=== PATIENT | male | born 1960 | race Caucasian/White ===

== ENCOUNTER → 2017-07-15 | Outpatient (CLI) | payer BC ==
[~2017-07-15] MED LIST: DOBUTamine DRIP for NUC MED 500 MG in DEXTROSE/WATER 1 250ML.BAG IV ONE
--- NOTE | 2017-07-15 11:30 | ECHOF ---
Referral Reason:I10 htn I63.9 Hx of cva MEASUREMENTS -------- HEIGHT: 180.3 cm WEIGHT: 22.7 kg BP: RVIDd: 2.8 cm (< 3.3) IVSd: 1.2 cm (0.6 - 1.1) LVIDd: 4.4 cm (3.9 - 5.3) LVPWd: 1.2 cm (0.6 - 1.1) IVSs: 1.6 cm LVIDs: 3.4 cm LVPWs: 1.6 cm LAESV Index (A-L): 44.08 ml/m Ao Diam: 3.6 cm (2.0 - 3.7) AV Cusp: 2.1 cm (1.5 - 2.6) LA Diam: 3.8 cm (2.7 - 3.8) MV EXCURSION: 9.371 mm (> 18.000) MV EF SLOPE: 62 mm/s (70 - 150) EPSS: 0.8 cm MV E John: 0.78 m/s MV DecT: 257 ms MV A John: 0.94 m/s MV E/A Ratio: 0.82 RAP: 5.00 mmHg RVSP: 13.96 mmHg FINDINGS -------- Sinus rhythm. This was a technically adequate study. The left ventricular size is normal. There is mild concentric left ventricular hypertrophy. Overall left ventricular systolic function is normal with, an EF between 55 - 60 %. The right ventricle is normal in size and function. LA is severely dilated >40 ml/m2 The right atrium is normal in size. Aortic valve is trileaflet and is mildly thickened. There is no evidence of aortic regurgitation. There is no evidence of aortic stenosis. The mitral valve leaflets are mildly thickened. Wzso-gc-ahtvxfjg mitral regurgitation is present. Trace tricuspid regurgitation present. Right ventricular systolic pressure is normal at < 35 mmHg. There is no evidence of pulmonary hypertension. Trace/mild (physiologic) pulmonic regurgitation. The aortic root size is normal. Normal inferior vena cava with normal inspiratory collapse consistent with estimated right atrial pressure of 5 mmHg. The pericardium is normal. There is no pericardial effusion. CONCLUSIONS -------- 1. Sinus rhythm. 2. Trace tricuspid regurgitation present. 3. Right ventricular systolic pressure is normal at < 35 mmHg. 4. There is no evidence of pulmonary hypertension. 5. Trace/mild (physiologic) pulmonic regurgitation. 6. The aortic root size is normal. 7. This was a technically adequate study. 8. The left ventricular size is normal. 9. There is mild concentric left ventricular hypertrophy. 10. Overall left ventricular systolic function is normal with, an EF between 55 - 60 %. 11. LA is severely dilated >40 ml/m2 12. Aortic valve is trileaflet and is mildly thickened. 13. The mitral valve leaflets are mildly thickened. 14. Pned-fj-uppacujk mitral regurgitation is present. [employer]: Sanjay Monroe RDCS
--- NOTE | 2017-07-15 13:05 | ECHOS ---
STRESS ECHOCARDIOGRAM DOBUTAMINE STRESS ECHOCARDIOGRAM: INDICATIONS: Hypertension/CVA MEDICATIONS:: Lipitor, propranolol, Furosemide, Clopidogrel. BASELINE HEART RATE: 65 BASELINE BLOOD PRESSURE: 96/55 MAXIMUM HEART RATE: 142 MAXIMUM BLOOD PRESSURE: 173/63 85% MPHR: 138 100% MPHR: 162 METS: - MAXIMUM STAGE REACHED: 3 TOTAL EXERCISE TIME: 8:30 CLINICAL INFORMATION: Baseline EKG revealed normal sinus rhythm without significant ST-T changes. Patient was admitted dobutamine as per protocol and with dobutamine administration his heart rate went up to 142 beats per minute. He had isolated PVCs. he did not have any angina. EKG did not reveal any ST-segment changes to indicate ischemia. By EKG criteria, this is unremarkable dobutamine stress test with isolated PVCs. Baseline echo images revealed normal wall motion and wall thickening of all segments. With the dobutamine administration, there was progressive increase in left ventricular contractility involving all segments suggesting that there is no evidence of stress- induced ischemia on this dobutamine stress echocardiogram. FINAL IMPRESSION: 1. By EKG criteria, this is an unremarkable dobutamine stress echo. 2. Normal dobutamine stress echocardiogram without evidence of ischemia. There were rare premature ventricular contractions noted and patient did not have any angina. MMODL / IJN: [id number] /
== END | disposition home or self-care (01) ==
LOC: RADNMMAIN 09:13
PROVIDERS: ATTEND Family Medicine
DX: I08.0 Rheumatic disorders of both mitral and aortic valves (principal); I10 Essential (primary) hypertension; Z86.73 Personal history of transient ischemic attack (TIA), and cerebral infarction without residual deficits
CPT/HCPCS: 93017; 93306; 93350

== ENCOUNTER 2021-08-02 11:07 | Emergency (ER) | payer BC ==
[2021-08-02 11:59] VITALS: BP 125/79; PULSE 57; RESP 16; TEMP 98.1
[2021-08-02] MEDS ORDERED: DIPH,PERTUS(ACELL)TETVAC-LF 0.5 ML VIAL IM ONE (12:21)
[2021-08-02] MEDS ORDERED: LIDOCAINE 1% INJ 10MG/ML (20 ML MDV) SQ ONE (12:23)
[2021-08-02] MEDS ORDERED: LIDOCAINE 1%-EPI 1:100,000 20 ML VIAL SQ STA (12:23)
[2021-08-02] MEDS ORDERED: BACITRACIN OINT 1 EACH PACKET TOPICAL ONE (12:23)
--- NOTE | 2021-08-02 12:27 | ED ---
General Adult HPI - General Source: patient Mode of arrival: ambulatory Limitations: no limitations <Jacki Ayoub - Last Filed: 08/02/21 13:58> <Brent Leblanc - Last Filed: 08/02/21 14:08> - General Chief complaint: Fall Stated complaint: fall, facial injury Time Seen by Provider: 08/02/21 12:04 - History of Present Illness Initial comments: 61-year-old male patient presents to the emergency department today for evaluation after falling off of his porch. Patient states he tripped over the dog leash and fell from the porch facedown. Patient does take Plavix. Porch is approximately 5 foot off the ground. Patient is reporting some mild pain to his right hand and some pain to his face. Denies headache, blurred vision, double vision. Denies any neck or back pain. Denies chest pain, shortness of breath, abdominal pain, nausea, vomiting. Denies drinking any alcohol or doing any drugs. States he was ambulatory after the fall. States last tetanus vaccine was approximately 6 years ago. He is declining pain medication at this time. Patient denies any dizziness, weakness, or difficulties with bowel movements or urination. (Jacki Ayoub) - Related Data Home Medications Medication Instructions Recorded Confirmed Atorvastatin [Lipitor] 40 mg PO DAILY 08/20/16 10/02/16 Clopidogrel [Plavix] 75 mg PO DAILY 08/20/16 10/01/16 Propranolol [Inderal] 20 mg PO DAILY 08/20/16 10/02/16 Docusate [Colace] 100 mg PO DAILY PRN 10/01/16 10/02/16 Previous Rx's Medication Instructions Recorded Docusate [Colace] 100 mg PO BID #30 capsule 10/02/16 Hydrocodone/Acetaminophen [[place] 1 each PO Q6HR PRN #30 tab 10/02/16 5-325] Allergies Allergy/AdvReac Type Severity Reaction Status Date / Time No Known Allergies Allergy Verified 08/02/21 11:59 Review of Systems ROS Other: All systems not noted in ROS Statement are negative. <Jacki Ayoub - Last Filed: 08/02/21 13:58> ROS Other: All systems not noted in ROS Statement are negative. <Brent Leblanc - Last Filed: 08/02/21 14:08> ROS Statement: Those systems with pertinent positive or pertinent negative responses have been documented in the HPI. 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 Had another minor stroke in 2012, umbilical and right inguinal hernias. History of Any Multi-Drug Resistant Organisms: None Reported Past Surgical History: Heart Catheterization, Orthopedic Surgery Additional Past Surgical History / Comment(s): R shoulder arthroscopic repair, 2005 cardiac catheterization was normal Past Anesthesia/Blood Transfusion Reactions: No Reported Reaction Past Psychological History: No Psychological Hx Reported Smoking Status: Former smoker Past Alcohol Use History: None Reported Past Drug Use History: None Reported - Past Family History Mother Family Medical History: CVA/TIA Additional Family Medical History / Comment(s): Mother in her 70s from CVA. Sister(s) Family Medical History: Cancer Additional Family Medical History / Comment(s): Patient has one sister with breast cancer. Other siblings have no major medical problems. Father Additional Family Medical History / Comment(s): Father is 79yrs old and has a pacemaker. <Jacki Ayoub M - Last Filed: 08/02/21 13:58> General Exam Limitations: no limitations General appearance: alert, in no apparent distress, other (This is a well- developed, well-nourished adult male patient in no acute distress. Vital signs upon presentation temperature 98.1F, pulse 57, respirations 16, blood pressure 125/79, pulse ox 96% on room air.) Eye exam: Present: normal appearance, PERRL, EOMI, periorbital swelling (Right), periorbital tenderness (Right ), other (There is soft tissue swelling and ecchymosis noted over the right lateral orbital region extending down over the right maxillary region. No hyphema. There is a 4 cm laceration to the right eyebrow, 3 cm laceration with surrounding abrasion, to the right maxillary region. No active bleeding.). Absent: scleral icterus, conjunctival injection ENT exam: Present: normal oropharynx (Poor dentition, extensive dental caries and decay.), mucous membranes moist, TM's normal bilaterally (No hemotympanum.), other (Nasal bone tenderness. Dried blood to the bilateral nostrils. No evidence for septal hematoma.) Neck exam: Present: normal inspection, full ROM, other (Nontender, no step-off, no deformity to firm midline palpation of the posterior cervical spine. Full range of motion without pain or limitation.). Absent: tenderness, meningismus, lymphadenopathy Respiratory exam: Present: normal lung sounds bilaterally. Absent: respiratory distress, wheezes, rales, rhonchi, stridor Cardiovascular Exam: Present: regular rate, normal rhythm, normal heart sounds. Absent: systolic murmur, diastolic murmur, rubs, gallop, clicks GI/Abdominal exam: Present: soft, normal bowel sounds. Absent: distended, tenderness, guarding, rebound, rigid Extremities exam: Present: full ROM, tenderness (Dorsal right hand tenderness near the fourth MCP joint), normal capillary refill, other (Mild soft tissue swelling noted over the dorsal aspect of the right hand. Skin is otherwise pink , warm, dry. Cap refill less than 3 seconds. Radial pulses 2+. No tenderness or instability noted to firm pressure to the bilateral hips.). Absent: pedal edema, joint swelling, calf tenderness Back exam: Present: normal inspection, other (Nontender, no step-off, no defor mity to firm midline palpation of the thoracic and lumbar vertebrae. Full range of motion without pain or limitation.). Absent: vertebral tenderness Neurological exam: Present: alert, oriented X3, CN II-XII intact, other (GCS 15) Psychiatric exam: Present: normal affect, normal mood Skin exam: Present: warm, dry, intact, normal color. Absent: rash <Jacki Ayoub M - Last Filed: 08/02/21 13:58> Course Vital Signs 08/02/21 11:56 Temperature 98.1 F Pulse Rate 57 L Respiratory 16 Rate Blood Pressure 125/79 O2 Sat by Pulse 96 Oximetry Procedures - Laceration Laceration #1 Consent Obtained: verbal consent Indication: laceration Site: face (right eyebrow) Size (cm): 5 Description: linear Depth: simple, single layer Anesthetic Used: lidocaine 1% Anesthesia Technique: local infiltration Amount (mls): 4 Pre-repair: irrigated extensively Type of Sutures: nylon Size of Sutures: 6-0 Number of Sutures: 7 Technique: simple, interrupted Patient Tolerated Procedure: well, no complications Laceration #2 Consent Obtained: verbal consent Indication: laceration Site: face (right maxillary region) Size (cm): 3 Description: linear Depth: simple, single layer Anesthetic Used: lidocaine 1% Anesthesia Technique: local infiltration Amount (mls): 3 Pre-repair: irrigated extensively Type of Sutures: nylon Size of Sutures: 6-0 Number of Sutures: 4 Technique: simple, interrupted Patient Tolerated Procedure: well, no complications <Jacki Ayoub - Last Filed: 08/02/21 13:58> - Orthopedic Splinting/Casting Injury #1 Side: right Upper Extremity Injury Location: short arm Upper Extremity Immobilizer: ulnar gutter <Brent Leblanc - Last Filed: 08/02/21 14:08> Medical Decision Making - Lab Data Result diagrams: 08/02/21 12:25 08/02/21 12:25 <Jacki Ayoub - Last Filed: 08/02/21 13:58> - Lab Data Result diagrams: 08/02/21 12:25 08/02/21 12:25 <Brent Leblanc - Last Filed: 08/02/21 14:08> - Medical Decision Making She was seen and evaluated along with nurse practitioner, Jacki Browne. This 61-year-old male fell off of a 5 foot he states he felt towards his right side. She meets criteria for level II trauma. Patient is activated level II trauma. Patient seen and evaluated via ATLS protocol. An is evidence of head trauma. He also complains of right hand pain. He does have some mild palpatory tenderness to the metacarpal phalangeal joints of his right hand. No gross deformities noted. She has 2 lacerations to his right periorbital area. Illogic deficits. Patient's well-appearing. Rest of physical examination is benign. EKG interpretation: Ventricular rate 63, normal sinus rhythm, IA interval 164, QRS 90, QTc 444. No IA prolongation, no QTC prolongation, no ST or T-wave changes noted. Overall, this EKG is unremarkable Computed tomography scan of the head and C-spine obtained. No intracranial traumatic injuries noted. No cervical spine injuries noted.. There is some soft tissue swelling to the right maxillary area with also acute nondisplaced fracture through the lateral wall of the right orbit. Chest x-ray and pelvis x- ray are negative. Right hand x-ray shows acute mildly displaced fracture to the mid diaphysis of the fifth metacarpal. Patient placed in ulnar gutter splint. Laceration was repaired by nurse practitioner. Patient counseled on suture removal in 3-5 days and to follow up with hand surgeon for outpatient management of hand fracture. (Brent Leblanc) - Lab Data Lab Results 08/02/21 08/02/21 08/02/21 Range/Units 12:25 12:25 12:25 WBC 15.9 H (3.8-10.6) k/uL RBC 4.65 (4.30-5.90) m/uL Hgb 14.7 (13.0-17.5) gm/dL Hct 43.2 (39.0-53.0) % MCV 92.9 (80.0-100.0) fL MCH 31.5 (25.0-35.0) pg MCHC 34.0 (31.0-37.0) g/dL RDW 12.8 (11.5-15.5) % Plt Count 312 (150-450) k/uL MPV 7.9 Neutrophils % 74 % Lymphocytes % 16 % Monocytes % 6 % Eosinophils % 1 % Basophils % 0 % Neutrophils # 11.8 H (1.3-7.7) k/uL Lymphocytes # 2.6 (1.0-4.8) k/uL Monocytes # 1.0 (0-1.0) k/uL Eosinophils # 0.2 (0-0.7) k/uL Basophils # 0.1 (0-0.2) k/uL PT 9.9 (9.0-12.0) sec INR 0.9 (<1.2) APTT 19.9 L (22.0-30.0) sec Sodium 139 (137-145) mmol/L Potassium 4.1 (3.5-5.1) mmol/L Chloride 106 (98-107) mmol/L Carbon Dioxide 24 (22-30) mmol/L Anion Gap 9 mmol/L BUN 19 (9-20) mg/dL Creatinine 1.23 (0.66-1.25) mg/dL Est GFR (CKD-EPI)AfAm 73 (>60 ml/min/1.73 sqM) Est GFR (CKD-EPI)NonAf 63 (>60 ml/min/1.73 sqM) Glucose 157 H (74-99) mg/dL Calcium 9.0 (8.4-10.2) mg/dL Total Bilirubin 1.1 (0.2-1.3) mg/dL AST 27 (17-59) U/L ALT 27 (4-49) U/L Alkaline Phosphatase 83 (38-126) U/L Troponin I (0.000-0.034) ng/mL Total Protein 6.7 (6.3-8.2) g/dL Albumin 3.8 (3.5-5.0) g/dL Serum Alcohol <10 mg/dL Blood Type Blood Type Confirm Blood Type Recheck Bld Type Recheck Status Antibody Screen Spec Expiration Date 08/02/21 08/02/21 08/02/21 Range/Units 12:25 12:25 12:30 WBC (3.8-10.6) k/uL RBC (4.30-5.90) m/uL Hgb (13.0-17.5) gm/dL Hct (39.0-53.0) % MCV (80.0-100.0) fL MCH (25.0-35.0) pg MCHC (31.0-37.0) g/dL RDW (11.5-15.5) % Plt Count (150-450) k/uL MPV Neutrophils % % Lymphocytes % % Monocytes % % Eosinophils % % Basophils % % Neutrophils # (1.3-7.7) k/uL Lymphocytes # (1.0-4.8) k/uL Monocytes # (0-1.0) k/uL Eosinophils # (0-0.7) k/uL Basophils # (0-0.2) k/uL PT (9.0-12.0) sec INR (<1.2) APTT (22.0-30.0) sec Sodium (137-145) mmol/L Potassium (3.5-5.1) mmol/L Chloride (98-107) mmol/L Carbon Dioxide (22-30) mmol/L Anion Gap mmol/L BUN (9-20) mg/dL Creatinine (0.66-1.25) mg/dL Est GFR (CKD-EPI)AfAm (>60 ml/min/1.73 sqM) Est GFR (CKD-EPI)NonAf (>60 ml/min/1.73 sqM) Glucose (74-99) mg/dL Calcium (8.4-10.2) mg/dL Total Bilirubin (0.2-1.3) mg/dL AST (17-59) U/L ALT (4-49) U/L Alkaline Phosphatase (38-126) U/L Troponin I <0.012 (0.000-0.034) ng/mL Total Protein (6.3-8.2) g/dL Albumin (3.5-5.0) g/dL Serum Alcohol mg/dL Blood Type AB Negative Blood Type Confirm AB Negative Blood Type Recheck No Previous Record Bld Type Recheck Status CABO Indicated Antibody Screen NEGATIVE Spec Expiration Date 08/05/20212324 Disposition <Jacki Ayoub - Last Filed: 08/02/21 13:58> Is patient prescribed a controlled substance at d/c from ED?: No <Brent Leblanc - Last Filed: 08/02/21 14:08> Clinical Impression: Fall, Facial laceration, Orbital wall fracture, Metacarpal bone fracture Disposition: HOME SELF-CARE Condition: Fair Instructions (If sedation given, give patient instructions): Fall Prevention for Older Adults (ED), Hand Fracture (ED), Facial Fracture (ED) Additional Instructions: Follow up with hand surgeon for hand fracture. Follow-up with primary care doctor for facial fracture. Suture removal in 3-5 days. Referrals: Atul Aldana DO [Primary Care Provider] - 1-2 days Virgilio Velasquez DO [Doctor of Osteopathic Medicine] - 1-2 days
[2021-08-02 12:35] LABS: Basophils # (A) 0.1 k/uL (0-0.2); Basophils % (A) 0 %; Eosinophils # (A) 0.2 k/uL (0-0.7); Eosinophils % (A) 1 %; HCT 43.2 % (39.0-53.0); HGB 14.7 gm/dL (13.0-17.5); Lymphocytes # (A) 2.6 k/uL (1.0-4.8); Lymphocytes % (A) 16 %; MCH 31.5 pg (25.0-35.0); MCV 92.9 fL (80.0-100.0); Mean Platelet Volume 7.9; Monocytes % (A) 6 %; Neutrophils # (A) 11.8 k/uL (1.3-7.7); Neutrophils % (A) 74 %; Platelet Count 312 k/uL (150-450); RBC 4.65 m/uL (4.30-5.90); RDW 12.8 % (11.5-15.5); WBC 15.9 k/uL (3.8-10.6)
[2021-08-02 12:52] LABS: INR 0.9 (<1.2); Prothrombin Time 9.9 sec (9.0-12.0)
[2021-08-02 12:56] LABS: ALT 27 U/L (4-49); AST 27 U/L (17-59); African American GFR (CKD) 73 (>60 ml/min/1.73 sqM); Albumin 3.8 g/dL (3.5-5.0); Alcohol <10 mg/dL; Alkaline Phosphatase 83 U/L (38-126); Anion Gap 9 mmol/L; Blood Urea Nitrogen 19 mg/dL (9-20); Carbon Dioxide 24 mmol/L (22-30); Chloride 106 mmol/L (98-107); Glucose 157 mg/dL (74-99); Non-African American GFR(CKD) 63 (>60 ml/min/1.73 sqM); Potassium 4.1 mmol/L (3.5-5.1); Sodium 139 mmol/L (137-145); Total Bilirubin 1.1 mg/dL (0.2-1.3); Total Protein 6.7 g/dL (6.3-8.2)
[2021-08-02 13:00] LABS: Partial Thromboplastin Time 19.9 sec (22.0-30.0)
--- NOTE | 2021-08-02 13:38 | CT ---
EXAMINATION TYPE: CT brain cspine wo con, CT facial bones wo con DATE OF EXAM: 08/02/2021 COMPARISON: CT brain November 27, 2015 HISTORY: Fall, Rt sided facial injury with headache and neck pain CT DLP: 1379.4 mGycm. Automated Exposure Control for Dose Reduction was Utilized. TECHNIQUE: CT scan of the head and cervical spine are performed without contrast. FINDINGS: There is no acute intracranial hemorrhage or midline shift identified. Mild ventricular a nd sulcal prominence. Large old infarct left parietal region redemonstrated. This extends to involve the superior left temporal lobe similar to prior Smaller old infarct right parietal region. Low atte nuation consistent with chronic small vessel ischemic change redemonstrated greatest around the large left-sided infarct. The calvarium is intact. There is moderate soft tissue swelling and hematoma over the lateral inferior aspect of right lobe ex tending over the right maxillary sinus and zygoma. Zygomatic arches are intact bilaterally. There is comminuted nondisplaced fracture with adjacent air through the lateral wall right orbit. The orbital floors and brewer are otherwise intact bilaterally. The globes are intact bilaterally. Intraconal fat is preserved bilaterally. There is bilateral enophthalmos noted. Pterygoid plates are intact. Mandibl e is intact. Temporomandibular joints are maintained bilaterally. Patchy cerumen deep bilateral extra ocular canals. Air-fluid levels in the sphenoid sinuses bilaterally. Lucency at the root of several m axillary teeth raising concern for significant dental caries, correlate clinically. Nasal bones are i ntact. Nasal septum is deviated to right of midline. Cervical spine is visualized in its entirety from C1 through upper thoracic levels and demonstrates g rade 1 retrolisthesis C4 on C5 without evidence of acute fracture or dislocation. Prevertebral soft tissue appears within normal limits. The C1-C2 articulation is within normal limits on the coronal i mages. Vertebral body heights are maintained. Uuwx-mr-[id number] disc space narrowing C5-C6 level. Spi nal canal grossly preserved. Lung apices show no pneumothorax. IMPRESSION: 1. There is no acute fracture or dislocation evident in the cervical spine. 2. No acute intracranial hemorrhage or midline shift is seen. 3. Moderate soft tissue swelling and subcutaneous hematoma right cheek level extending towards inferi or lateral right preorbital region with acute nondisplaced fracture through the lateral wall right or bit noted.
--- NOTE | 2021-08-02 13:39 | XR ---
EXAMINATION TYPE: XR chest 1V portable DATE OF EXAM: 08/02/2021 COMPARISON: NONE HISTORY: Pain after injury. TECHNIQUE: Single frontal view of the chest is obtained. FINDINGS: There is no suspicious focal air space opacity, pleural effusion, or pneumothorax seen. T he cardiac silhouette size is enlarged. Overlying EKG leads. The osseous structures are intact. IMPRESSION: Cardiomegaly without acute pulmonary process.
--- NOTE | 2021-08-02 13:39 | XR ---
EXAMINATION TYPE: XR pelvis AP view DATE OF EXAM: 08/02/2021 CLINICAL HISTORY: Trauma injury with pain TECHNIQUE: 2 AP frontal views of the pelvis are COMPARISON: None. FINDINGS: There is no acute fracture/dislocation evident in the pelvis. Symmetric mild to moderate a xial joint space loss in both hips. The sacroiliac joints are preserved. Pubic symphysis is intact. S myra left-sided pelvic phlebolith. IMPRESSION: There is no acute fracture or dislocation in the pelvis.
--- NOTE | 2021-08-02 13:41 | XR ---
EXAMINATION TYPE: XR hand complete RT DATE OF EXAM: 08/02/2021 CLINICAL HISTORY: Pain after injury. TECHNIQUE: Frontal, lateral and oblique images of the right hand are obtained. COMPARISON: None. FINDINGS: [place] osseous structures are demineralized. There is acute mildly displaced spiral type fr acture through the proximal to mid diaphysis fifth metacarpal. Moderate to severe narrowing and spurr ing at base of first metacarpal. Moderate triscaphe joint space narrowing. Overlying soft tissue is u nremarkable. IMPRESSION: There is acute mildly displaced spiral type fracture proximal to mid diaphysis fifth met acarpal .
[2021-08-02] MEDS ORDERED: ACET/COD 300 MG/30 MG STARTER PACK 6 TAB BTL PO STA (14:09)
== END 2021-08-02 14:59 | disposition home or self-care (01) ==
LOC: EC 11:07
DX: S02.841A Fracture of lateral orbital wall, right side, initial encounter for closed fracture (principal); S62.396A Other fracture of fifth metacarpal bone, right hand, initial encounter for closed fracture; S01.81XA Laceration without foreign body of other part of head, initial encounter; I10 Essential (primary) hypertension; E78.5 Hyperlipidemia, unspecified; Z79.02 Long term (current) use of antithrombotics/antiplatelets; Z86.73 Personal history of transient ischemic attack (TIA), and cerebral infarction without residual deficits; Z87.891 Personal history of nicotine dependence; Z80.3 Family history of malignant neoplasm of breast; Z23 Encounter for immunization; W13.0XXA Fall from, out of or through balcony, initial encounter
CPT/HCPCS: 93005; 86900; 86901; 80053; 84484; 85025; 85610; 85730; 86850; 80320; 72170; 73130; 71045; 72125; 70486; 70450; 90715; 90471; 12015; 29125; 99284; J2001